=== PATIENT | female | born 1950 | race Caucasian/White ===

== ENCOUNTER → 2016-06-04 | Outpatient (CLI) | payer OTHER ==
[~2016-06-04] VITALS: Ht 162.6 cm; Wt 82.1 kg
[~2016-06-04] MED LIST: ADVAIR 500/501 DISK IH; ALBUTEROL17 GM IH; ALLEGRA30 MG PO; ALPHAGAN P100 DROP/5 BOTH EYES; ASPIRIN81 M1 PO; ATIVAN0.5 MG PO; BENTYL10 MG PO; CALCIUM 600 +1 EACH PO; CALCIUM600 MG PO; CELEXA20 MG PO; CINNAMON500 MG PO; COQ-10100 MG PO; CYMBALTA30 MG PO; DILAUDID2 MG PO; DILAUDID4 MG PO; DURAGESIC1 EACH TD; DURAGESIC50 MCG TD; ECOTRIN81 MG PO; EFFEXOR XR75 MG PO; FENTANYL1 EAC1 TD; FENTANYL1 EAC2 TD; FENTANYL1 EAC5 TD; FENTANYL1 EACH TD; FISH OIL 1,001000 M1 PO; FISH OIL CONC1 EACH PO; FISH OIL500 MG PO; FOLIC ACID; GLIPIZIDE PO; GLUCOTROL XL10 MG PO; HYDROCODON-ACE1 EAC7 PO; IMITREX50 MG PO; ISTALOL5 ML OP; LASIX40 MG PO; LEVO-T50 MCG PO; LEVOTHYROXINE50 MCG PO; LIDODERM 5% P1 PATCH PO; LIDODERM 5% P1 PATCH TP; LORAZEPAM0.5 MG PO; METAMUCIL1 EACH PO; METFORMIN HCL500 MG PO; METOPROLOL; METOPROLOL TART50 MG PO; MYCELEX10 MG MM; NITROGLYCERIN0.4 MG SL; NITROSTAT0.3 MG SL; NOVOLOG (UNITS1 UNIT IV; OCUVITE TABLET1 EACH PO; OCUVITE1 TABLET PO; OMEPRAZOLE40 M1 PO; ONDANSETRON HCL4 MG PO; OXYGEN MC; PREDNISONE10 M2 PO; PREDNISONE5 MG PO; PRILOSEC40 MG PO; PROVENTIL HFA6.7 GM IH; PROVENTIL,VENTOL2 MG PO; SINGULAIR10 MG PO; SONATA10 MG PO; TOPROL XL50 MG PO; TRULICITY0.75 MG/0. SC; VICODIN 5-5001 EACH PO; VITAMIN B W/C1 EACH PO; VITAMIN B-COMP1 EAC4 PO; VITAMIN D; VITAMIN D2000 UNIT PO; XALATAN 0.50 DROP/2. BOTH EYES; XALATAN2.5 ML BOTH EYES; ZANAFLEX2 MG PO; ZITHROMAX500 MG PO; ZOLOFT50 MG PO
[2016-06-04 10:00] LABS: POINT-OF-CARE METER ID UU13113694
[2016-06-04 11:41] LABS: POINT-OF-CARE METER ID UU13113819
== END | disposition home or self-care (01) ==
LOC: AMB 09:15
PROVIDERS: Internal Medicine Gastroenterology
PROC: 0DBE8ZZ Excision of Large Intestine, Via Natural or Artificial Opening Endoscopic (ICD-10-PCS; principal; 2016-06-04)
DX: Z09 Encounter for follow-up examination after completed treatment for conditions other than malignant neoplasm (principal); Z80.0 Family history of malignant neoplasm of digestive organs; Z86.010 Personal history of colon polyps; D12.3 Benign neoplasm of transverse colon; D12.2 Benign neoplasm of ascending colon; K57.90 Diverticulosis of intestine, part unspecified, without perforation or abscess without bleeding; K64.9 Unspecified hemorrhoids; M79.7 Fibromyalgia; K21.9 Gastro-esophageal reflux disease without esophagitis; J45.909 Unspecified asthma, uncomplicated; E03.9 Hypothyroidism, unspecified
CPT/HCPCS: 82948; 88305; B4087; J2250; J3010

== ENCOUNTER 2016-08-06 21:46 | Inpatient (IN) | payer OTHER ==
[~2016-08-06] VITALS: Ht 162.6 cm; Wt 79.5 kg
[2016-08-06 22:11] LABS: HEMATOCRIT 48.3 % (36.0-46.0); MCH 27.9 PG (29.0-34.0); MCHC 31.1 G/DL (30.0-36.0); MCV 89.9 FL (83-99); PLATELET COUNT 472 K/uL (156-360); RBC DIS.WIDTH-CV 13.5 % (11.8-14.6); RBC DIS.WIDTH-SD 44.8 % (39-53); RED BLOOD COUNT 5.37 M/uL (3.80-5.20); WHITE BLOOD COUNT 16.4 K/uL (4.1-10.2)
[2016-08-06 22:31] LABS: CHLORIDE 100 mEq/L (99-109); POTASSIUM 4.9 mEq/L (3.7-5.4); SODIUM 140 mEq/L (136-147)
[2016-08-06 22:35] LABS: ANION GAP 12 MEQ/L (2-14); GLUCOSE 256 mg/dL (70-99)
[2016-08-06 22:36] LABS: TOTAL BILIRUBIN 1.3 mg/dL (0.0-1.0)
[2016-08-06 22:37] LABS: ALKALINE PHOSPHATASE 268 IU/L (3-129); GFR ESTIMATE (CALCULATED) > 59 mL/min/
[2016-08-06 22:38] LABS: UREA NITROGEN (BUN) 20 mg/dL (9-23)
[2016-08-06 22:41] LABS: LIPASE 44 U/L (1.0-51.0)
[2016-08-06 23:24] LABS: TROP-I INTERPRETATION NEGATIVE; TROPONIN-I < 0.01 ng/mL (0.0-0.30)
[2016-08-07] VITALS (7 sets, daily range): BP systolic 83–158; BP diastolic 45–70
[2016-08-07 00:12] LABS: ADD MIUA? YES; BILIRUBIN NEGATIVE; BLOOD NEGATIVE; COLOR YELLOW ((YELLOW)); GLUCOSE (STRIP) NEGATIVE; KETONES NEGATIVE; LEUKOCYTES TRACE; NITRITE NEGATIVE; PROTEIN (STRIP) NEGATIVE; SPECIFIC GRAVITY 1.019 (1.000-1.030)
[2016-08-07 00:25] LABS: BACTERIA NONE SEEN /HPF; EPITHELIAL CELLS NONE SEEN /HPF; HYALINE CASTS 0-5 /LPF; MUCUS TRACE /LPF; RED BLOOD CELLS 0-5 /HPF (0-5); UCUL ADDED? NO; WHITE BLOOD CELLS NONE SEEN /HPF (0-5)
[2016-08-07 08:04] LABS: POINT-OF-CARE METER ID UU14162508
[2016-08-07 11:53] LABS: POINT-OF-CARE METER ID UU14162508
[2016-08-07] MEDS ORDERED: GLUCOTROL XL10 MG PO (13:26)
[2016-08-07 14:40] LABS: POINT-OF-CARE METER ID UU13113675
[2016-08-08] VITALS (7 sets, daily range): BP systolic 90–157; BP diastolic 50–74
[2016-08-08 06:54] LABS: POINT-OF-CARE METER ID UU14162508
[2016-08-08 07:30] LABS: HEMATOCRIT 35.6 % (36.0-46.0); MCH 28.3 PG (29.0-34.0); MCHC 31.2 G/DL (30.0-36.0); MCV 90.8 FL (83-99); RBC DIS.WIDTH-CV 14.2 % (11.8-14.6); RBC DIS.WIDTH-SD 47.6 % (39-53)
[2016-08-08 07:38] LABS: ALKALINE PHOSPHATASE 166 IU/L (3-129); ANION GAP 8 MEQ/L (2-14); CHLORIDE 103 MEQ/L (99-109); GFR ESTIMATE (CALCULATED) > 59 mL/min/; GLUCOSE 162 mg/dL (70-99); POTASSIUM 4.6 MEQ/L (3.7-5.4); SAMPLE HEMOLYSIS CHECK 0; SAMPLE ICTERIC CHECK 1; SAMPLE LIPEMIA CHECK 0; SODIUM 138 MEQ/L (136-147); TOTAL BILIRUBIN 4.4 MG/DL (0.0-1.0); UREA NITROGEN (BUN) 15 mg/dL (9-23)
[2016-08-08 07:49] LABS: RED BLOOD COUNT 3.92 M/uL (3.80-5.20)
[2016-08-08 07:52] LABS: MEAN PLAT.VOLUME 9.6 uM^3 (9.5-12.4)
[2016-08-08 08:13] LABS: PLATELET COUNT 253 K/uL (156-360)
[2016-08-08] MEDS ORDERED: ZOLOFT100 MG PO (14:16)
[2016-08-08] MEDS ORDERED: FUROSEMIDE20 MG PO (14:27)
[2016-08-08] MEDS ORDERED: LIDODERM 5% P1 PATCH TD (14:28)
[2016-08-08] MEDS ORDERED: NOVOLOG PE100 UNITS/ SC (14:28)
[2016-08-08 21:50] LABS: POINT-OF-CARE METER ID UU14162508
[2016-08-09 03:36] VITALS: BP 106/59
[2016-08-09 06:37] LABS: POINT-OF-CARE METER ID UU14162508
[2016-08-09 07:26] LABS: MCH 27.9 PG (29.0-34.0); MCHC 31.5 G/DL (30.0-36.0); MCV 88.5 FL (83-99); MEAN PLAT.VOLUME 9.8 uM^3 (9.5-12.4); PLATELET COUNT 269 K/uL (156-360); RBC DIS.WIDTH-SD 45.3 % (39-53); RED BLOOD COUNT 3.73 M/uL (3.80-5.20); WHITE BLOOD COUNT 12.3 K/uL (4.1-10.2)
[2016-08-09 07:30] VITALS: BP 133/59
[2016-08-09 07:51] LABS: ALKALINE PHOSPHATASE 154 IU/L (3-129); ALKALINE PHOSPHATASE 161 IU/L (3-129); AMYLASE 12 IU/L (1-118); ANION GAP 7 MEQ/L (2-14); ANION GAP 8 MEQ/L (2-14); CHLORIDE 102 MEQ/L (99-109); GFR ESTIMATE (CALCULATED) > 59 mL/min/; POTASSIUM 3.9 MEQ/L (3.7-5.4); POTASSIUM 4.3 MEQ/L (3.7-5.4); SAMPLE HEMOLYSIS CHECK 0; SAMPLE ICTERIC CHECK 1; SAMPLE LIPEMIA CHECK 0; SODIUM 138 MEQ/L (136-147); TOTAL BILIRUBIN 4.1 MG/DL (0.0-1.0); UREA NITROGEN (BUN) 9 mg/dL (9-23)
[2016-08-09 07:53] LABS: GLUCOSE 71 mg/dL (70-99); GLUCOSE 73 mg/dL (70-99)
[2016-08-09 11:09] VITALS: BP 111/56
[2016-08-09 11:32] LABS: POINT-OF-CARE METER ID UU14162508
== END 2016-08-09 15:03 | disposition home or self-care (01) | DRG 419 ==
LOC: EME 21:46 → 2EAST 08-07 00:31 → EDOF 08-07 00:31 → 2EAST 08-07 00:31
PROVIDERS: Emergency Medicine; Physician Assistant; Surgery
DX: K80.66 Calculus of gallbladder and bile duct with acute and chronic cholecystitis without obstruction (principal); E11.65 Type 2 diabetes mellitus with hyperglycemia; I95.9 Hypotension, unspecified; K82.8 Other specified diseases of gallbladder; G43.909 Migraine, unspecified, not intractable, without status migrainosus; E78.5 Hyperlipidemia, unspecified; M35.3 Polymyalgia rheumatica; K58.9 Irritable bowel syndrome, unspecified; G89.29 Other chronic pain; E73.9 Lactose intolerance, unspecified; Z79.84 Long term (current) use of oral hypoglycemic drugs
CPT/HCPCS: 74177; 74300; 76705; 80048; 80053; 80076; 81003; 82150; 82565; 82948; 83690; 84484; 84520; 85027; 88304; 93005; 94002; 94640; 94640 76; 94799; 99202; 99281; 99285; C1725; C1769; C1894; J0330; J1100; J1170; J1650; J1815; J2250; J2270; J2405; J2704; J2710; J2765; J3010; J7030; J7050; S0020; S0074

== ENCOUNTER 2017-03-19 12:45 | Day surgery (SDC) | payer OTHER ==
[~2017-03-19] VITALS: Ht 160 cm; Wt 78.0 kg
[~2017-03-19 12:45] MED LIST changes: +ERGOCALCIF50000 UNIT PO; +FUROSEMIDE20 MG PO; +LASIX20 MG PO; -LEVOTHYROXINE50 MCG PO; +LIDODERM 5% P1 PATCH TD; +NOVOLOG PE100 UNITS/ SC; +SYMBICORT60 INHALAT IH; +SYNTHROID75 MCG PO; +ZOLOFT100 MG PO
[2017-03-19 13:26] LABS: POINT-OF-CARE METER ID UU14174212
[2017-03-19 13:31] VITALS: BP 124/64
[2017-03-19 19:09] LABS: POINT-OF-CARE METER ID UU13113675
[2017-03-19 19:20] VITALS: BP 143/85
[2017-03-19 20:07] VITALS: BP 149/68
== END 2017-03-19 20:20 | disposition home or self-care (01) ==
LOC: SDC 12:45
PROVIDERS: Orthopaedic Surgery
DX: M19.011 Primary osteoarthritis, right shoulder (principal); M25.811 Other specified joint disorders, right shoulder; M75.101 Unspecified rotator cuff tear or rupture of right shoulder, not specified as traumatic; R94.31 Abnormal electrocardiogram [ECG] [EKG]; J44.9 Chronic obstructive pulmonary disease, unspecified; I10 Essential (primary) hypertension; E03.9 Hypothyroidism, unspecified; E11.9 Type 2 diabetes mellitus without complications; K21.9 Gastro-esophageal reflux disease without esophagitis; E66.9 Obesity, unspecified; Z68.30 Body mass index [BMI] 30.0-30.9, adult; Z79.4 Long term (current) use of insulin
CPT/HCPCS: 82948; J0690; J1100; J1170; J2250; J2405; J2710; J3010; S0020

== ENCOUNTER 2017-07-09 10:53 | Day surgery (SDC) | payer OTHER ==
[~2017-07-09] VITALS: Ht 162.6 cm; Wt 77.1 kg
[~2017-07-09 10:53] MED LIST changes: +FISH OIL CONC1000 M2 PO
[2017-07-09 12:16] VITALS: BP 105/51
[2017-07-09 15:40] VITALS: BP 148/69
[2017-07-09 16:19] VITALS: BP 104/67
== END 2017-07-09 16:28 | disposition home or self-care (01) ==
LOC: SDC 10:53
PROVIDERS: Orthopaedic Surgery
DX: M75.122 Complete rotator cuff tear or rupture of left shoulder, not specified as traumatic (principal); M75.52 Bursitis of left shoulder; E11.9 Type 2 diabetes mellitus without complications; E78.5 Hyperlipidemia, unspecified; I10 Essential (primary) hypertension; Z88.8 Allergy status to other drugs, medicaments and biological substances
CPT/HCPCS: 82948; C1713; J0131; J0690; J1170; J2250; J3010; S0020